=== PATIENT | male | born 1980 | race Two or more races ===

== ENCOUNTER 2018-11-19 14:39 | Emergency (ER) | payer MEDICAID ==
[~2018-11-19] VITALS: Ht 165.1 cm; Wt 81.6 kg
[2018-11-19 15:28] VITALS: BP 157/87
--- NOTE | 2018-11-19 15:30 | NUR ---
Patient does not wish to proceed with medical care recommended by Dr. Brown. Patient given information related to possible complications, up to and including , which could occur as a result of leaving the hospital at this time. Patient verbalizes understanding of risks involved due to leaving against medical advice. Patient has refused to signed AMA form MD made aware.
== END 2018-11-19 15:30 | disposition left against medical advice (07) ==
LOC: ER 14:39
DX: S59.812A Other specified injuries left forearm, initial encounter (principal); X58.XXXA Exposure to other specified factors, initial encounter; Y93.89 Activity, other specified; Y92.89 Other specified places as the place of occurrence of the external cause; Y99.8 Other external cause status